=== PATIENT | female | born 1945 | race African-American/Black ===

== ENCOUNTER 2016-12-02 18:42 | Emergency (ER) | payer OTHER ==
[~2016-12-02] VITALS: Ht 157.5 cm; Wt 98.9 kg
[2016-12-02] MEDS ORDERED: methylPREDNISolone SOD SUCC 125 MG/2 ML VL IM ONE (20:00)
[2016-12-02] MEDS ORDERED: KETOROLAC TROMETH 60MG/2ML VIAL IM ONE (20:00)
[2016-12-02 20:19] VITALS: BP 13/71
== END 2016-12-02 20:30 | disposition home or self-care (01) ==
LOC: ER 18:42
DX: M54.16 Radiculopathy, lumbar region (principal); E11.9 Type 2 diabetes mellitus without complications; I10 Essential (primary) hypertension; G89.29 Other chronic pain; Z85.9 Personal history of malignant neoplasm, unspecified
CPT/HCPCS: 93005; 96372; 99284; J1885; J2930